=== PATIENT | male | born 1945 | race Caucasian/White ===

== ENCOUNTER 2021-11-28 10:30 | Outpatient (RCR) | payer MEDICARE, SELFPAY ==
--- NOTE | 2021-10-31 16:57 | PT.OPEX ---
[facility] Eval Start: 10/31/21 14:39 Freq: Status: Active Protocol: Document 10/31/21 14:40 NMK (Rec: 10/31/21 15:30 NMK [id number]) E-signed By Ozzie Joy DPT Physical Therapy Outpatient Evaluation Insurance Information Recert Due Date 01/30/22 Insurance Name Medicare B Medical Diagnosis Presence of right artificial hip joint Treating Diagnosis Hip pain; back pain; hip weakness; back waekness Referring MD Lenny Trinh MD Subjective Subjective 76 y.o. male pt presents R hip pain s/p ANNIE with DOS of . Pt reports he is doing well overall but in the last 3 weeks or so he has started to have some increased lateral hip pain and back pain on his R side. He reports he has been walking between 5,000-10,000 steps daily, as well as doing Yoga and iván chi a few times per week on top of that. Currently his hip hurts at times when performing certain yoga poses as well as walking. He states the pain is minor, but he is worried that his body is remembering his pain and that his hip pain is all going to come back. Overall he does feel that he is doing better, and he is not having any issues with ADL's after his hip replacement. He does report back pain>hip pain at this time. Current Work Status Retired Occupation Artist; author Preferred Name Cheng Precautions Weight Bearing Status Weight Bear as Tolerated Therapy Limitations/Systems Review Not Limited Objective Other/Pertinent Objective Strength 30-STS: 15 (WNL for age and gender) ROM: WNL in bilateral LE. No pain present with hip ROM on R side. Back ROM WNL in all planes of motion. Palpation: Mild TTP present over greater trochanter/glute medius muscle and distal IT band. No other TTP present over lateral hip. No TTP present over R side low back, or with PA mobilizations to lumbar spine. 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 Impairments related to current health condition include hip pain, back pain, hip weakness, and trunk weakness. These impairments contribute to decreased capacity to perform his usual wellness routine in including yoga and iván chi due to weakness and pain. Examination of body systems including structures, functions, activity limitations and participation restrictions have been addressed. Skilled PT is recommended in order to improve the patient's mobility and restore their baseline level of function. Within session patient tolerating trunk and hip strengthening without reports of increased pain. Primary Functional Limitations Walking (longer distances), yoga Plan of Care Rehabilitation Potential Good Physical Therapy Goals At or before 01/30/2022... 1. Pt will walk 3-5 miles and report less than 3/10 hip pain 2. Pt will perform a squat 10 times while holding 10 pounds in therapy and report less than 3/10 when doing so to show ability to squat and lift items at home with minimal pain in hip and back 3. Pt will be independent in HEP in order to show ability to self manage condition after discharge Coordination/Communication With Referral Source Treatment Plan/Direct Interventions Joint Mobilization,Manual Therapy,Neuromuscular Re-ed, Self-Care/Home Management, Therapeutic Exercises Frequency/Duration 1-2 per week for 8-12 weeks Patient Will Be Discharged From Therapy Completion of LTG(s),Skills Plateau,Independent w/HEP, Independently Progressing Evaluation Billing Untimed Code Treatment Minutes 30 Complexity Moderate Certification Information Physician Comment/Change Comment or Changes Physician NPI Number #
== END 2022-08-31 23:59 | disposition home or self-care (01) ==
PROVIDERS: PCP Family Medicine; Visit Provider Orthopaedic Surgery
DX: M17.11 Unilateral primary osteoarthritis, right knee (principal); Z51.89 Encounter for other specified aftercare
CPT/HCPCS: 97110; 97162; 97535

== ENCOUNTER 2024-11-18 09:05 | Outpatient (RCR) | payer MEDICARE, SELFPAY | END 2024-11-18 10:05 | disposition home or self-care (01) | PROVIDERS: PCP Family Medicine; Visit Provider Orthopaedic Surgery | DX: Z51.89 Encounter for other specified aftercare (principal) ==